=== PATIENT | female | born 1980 | race Caucasian/White ===

== ENCOUNTER 2025-03-11 00:57 | Emergency (ER) | payer OTHER ==
[2025-03-11 01:03] VITALS: BP 136/91; PULSE 84; RESP 18; TEMP 97.9; BMI 25.3
[2025-03-11] MEDS ORDERED: ACETAMINOPHEN INJECTION 100 ML ONE (01:40)
[2025-03-11] MEDS ORDERED: KETOROLAC TROMETHAMINE 30 MG/1 ML VIAL ONE (02:00)
[2025-03-11] MEDS: ACETAMINOPHEN 1000 MG/100 ML BAG IVPB ONE (02:05)
[2025-03-11 02:08] LABS: HEMOGLOBIN 11.3 g/dL (11.2-15.7); MCHC 31.4 g/dl (32.2-35.5); MEAN CELL VOLUME 81.6 fl (79.4-94.8); MEAN PLT VOLUME 11.1 fl (9.4-12.3); PLATELET COUNT 325 x10^3/uL (182-369)
[2025-03-11 02:18] LABS: INR 0.97 (0.83-1.09); PROTHROMBIN TIME (PATIENT) 10.6 SEC (9.7-13.0)
[2025-03-11] MEDS: KETOROLAC TROMETHAMINE 15 MG/ML VIAL IVPUSH ONE ×2 (02:20→03:08)
[2025-03-11] MEDS: KETOROLAC TROMETHAMINE 30 MG/1 ML VIAL IVPUSH ONE (02:20)
[2025-03-11 02:48] LABS: POTASSIUM 4.2 mmol/L (3.5-5.1)
[2025-03-11 02:50] LABS: ALBUMIN 3.7 g/dl (3.4-5.0); CALCIUM 9.5 mg/dL (8.5-10.1)
[2025-03-11 02:55] LABS: BILIRUBIN,TOTAL 0.4 mg/dL (0.2-1)
[2025-03-11] MEDS ORDERED: MORPHINE SULFATE 2 MG/ML SYRINGE ONE (03:25)
[2025-03-11] MEDS: morphine SULFATE 4 MG/ML VIAL IVPUSH ONE (03:25)
[2025-03-11 03:50] LABS: IRON SERUM 25 ug/dL (50-175); TOTAL IRON BINDING CAPACITY 385 ug/dL (250-450)
== END 2025-03-11 03:59 | disposition home or self-care (01) ==
LOC: JER 00:57
PROC: 3E033NZ Introduction of Analgesics, Hypnotics, Sedatives into Peripheral Vein, Percutaneous Approach (ICD-10-PCS; principal; 2025-03-11)
PROC: 3E0333Z Introduction of Anti-inflammatory into Peripheral Vein, Percutaneous Approach (ICD-10-PCS; 2025-03-11)
DX: N93.9 Abnormal uterine and vaginal bleeding, unspecified (principal); R10.30 Lower abdominal pain, unspecified; R42 Dizziness and giddiness
CPT/HCPCS: 36415; 80053; 83540; 83550; 85025; 85610; 86850; 86900; 86901; 99284-25